=== PATIENT | female | born 1955 | race Caucasian/White ===

== ENCOUNTER 2018-09-01 17:56 | Inpatient (IN) | payer OTHER ==
[~2018-09-01] VITALS: Ht 162.6 cm; Wt 141.4 kg
--- NOTE | ~2018-09-01 | D ---
[facility] [place] [address] DISCHARGE SUMMARY Name: CHANTE MCCRACKEN Room #: 527B-B DIS IN M.R.#: [id number] Admission: 09/01/18 ������������������ Attend Phys: Kee Cosme DO Discharge: 09/06/18 ������������������ Date of : 59 Report #: [id number] THIS REPORT FOR: //name// CC: Kee Rahman Physician staff DATE OF SERVICE: 09/06/2018 PSYCHIATRIC DISCHARGE SUMMARY DIGITAL ANALYTICS MANAGER AT THE TIME OF DISCHARGE: Rasheed Cornejo MD DISCHARGE DIAGNOSES: As follows: Bipolar 1 disorder, most recent episode manic with psychotic features, improved, likely borderline personality disorder especially borderline personality traits. Medical comorbidities include back pain lower, the patient refused radiologic examination of this, hypothyroidism, bladder retention, hypertension. The hypothyroidism, bladder retention, hypertension were all stable. She had lower extremity swelling, likely lymphedema that was managed with Lasix. DISCHARGE PLANS: She is discharged back to the [facility]. The patient does not have a guardian or DPOA. Psychiatric and medical care will be per the facility's protocol, however, certainly psychiatric consultation is encouraged. DISCHARGE MEDICATIONS: Are as follows: Tamsulosin 0.4 mg p.o. at 2100 hours for urinary retention, lamotrigine 50 mg p.o. at bedtime for mood stabilizations, ziprasidone 60 mg p.o. b.i.d. with meals for psychosis, diazepam 5 mg p.o. q. 6 p.r.n. for agitation, potassium chloride 20 mEq p.o. b.i.d. supplementation, furosemide 20 mg p.o. b.i.d. at 0700 hours and 1400 hours for lymphedema, amlodipine besylate 10 mg p.o. daily for hypertension, Welchol 1875 mg p.o. b.i.d. for hyperlipidemia, ergocalciferol 50,000 international units p.o. weekly, famotidine 20 mg p.o. at bedtime for GERD, levothyroxine 100 mcg p.o. daily for hypothyroidism, miconazole topical t.i.d. to tinea on axilla and under breast until resolved, tramadol 50 mg p.o. q.4 p.r.n. for pain level 5-10. Stop medications included cyproheptadine which I think is poor idea because of the serotonin antagonist as well as its strong antihistaminic effect. The patient has super morbid obesity with a BMI of 53.5 REASON FOR ADMISSION: Refusal for cares, decompensated psychosis. HOSPITAL COURSE: The patient was admitted to Geriatric Psychiatry Unit. The patient displayed initially several days of very childish behavior, putting herself on the floor, refusing to get up and needed to be secured to [address] [address] DISCHARGE SUMMARY Name: CHANTE MCCRACKEN Room #: 527B-B DIS IN M.R.#: [id number] Admission: 09/01/18 ������������������ Attend Phys: Kee Cosme, DO Discharge: 09/06/18 ������������������ Date of : 59 Report #: [id number] board to be put back in bed. The patient was generally not participative in group. She displayed what I strongly believe are nonepileptic seizure phenomenon. The patient was uncooperative with further evaluation from these including radiologic examination. At the time of discharge, the patient was not suicidal or homicidal. PHYSICAL EXAMINATION: VITAL SIGNS: A the time of discharge, temperature 37.1, pulse 87, respirations 18, BP 153/81, O2 sat 93% on room air. MUSCULOSKELETAL: The patient is somewhat selectively nonambulatory claiming she is nonweightbearing due to fracture which is not true. MENTAL STATUS EXAMINATION: This is a well-developed, super morbidly obese female, appearing actually slightly younger than stated age. Attention intact. Concentration intact. Speech normal rate and normal tone. Thought process linear, selectively goal directed. Thought content focused on having a baby, she does have pseudocyesis at the time of discharge, she believed she was 6 weeks , beginning of admission when she was ____ she was a month , wanting to live with her parents. No psychomotor agitation. No psychomotor retardation. Mood and affect were congruent, euthymic. Denied SI or HI. Some helplessness. Denied hopelessness. Memory not formally tested. Insight poor. Judgment limited. Fund of knowledge below average. Prognosis for this patient is guarded to poor given her psychiatric history, refusal to cooperate with medical and psychiatric evaluations. I concur with the family that public development administrator/guardian would likely be in the best interest of managing this patient on an ongoing basis. ��������������������������������������������� ���������������������������������������� By: ��������������������������������������������� [id number] Kee Cosme, /nt
[2018-09-01 17:59] VITALS: BP 160/82
[2018-09-01] MEDS ORDERED: NORVASC10 MG PO (18:03)
[2018-09-01] MEDS ORDERED: COLESEVELAM HC625 MG PO (18:04)
[2018-09-01] MEDS ORDERED: CYPROHEPTADINE 44 MG PO (18:11)
[2018-09-01] MEDS ORDERED: DEXACIDIN EYE DR5 ML OPHTHALMIC (18:13)
[2018-09-01] MEDS ORDERED: VITAMIN D250 MCG PO (18:14)
[2018-09-01] MEDS ORDERED: FAMOTIDINE 20 M20 MG PO (18:15)
[2018-09-01] MEDS ORDERED: LASIX 20 MG TAB20 MG PO (18:16)
[2018-09-01] MEDS ORDERED: LAMICTAL100 MG PO (18:17)
[2018-09-01] MEDS ORDERED: TIROSINT100 MCG PO (18:18)
[2018-09-01] MEDS ORDERED: MICONAZOLE5 GM TOP (18:19)
[2018-09-01] MEDS ORDERED: KLOR-CON 1010 MEQ PO (18:20)
[2018-09-01] MEDS ORDERED: AKWA TEARS EYE15 ML OPHTHALMIC (18:20)
[2018-09-01] MEDS ORDERED: TOBREX5 ML OPHTHALMIC (18:21)
[2018-09-01] MEDS ORDERED: FLOMAX0.4 MG PO (18:21)
[2018-09-01] MEDS ORDERED: GEODON40 MG PO (18:22)
[2018-09-01] MEDS ORDERED: TRAMADOL 50 MG50 MG PO (18:24)
[2018-09-01] MEDS ORDERED: GEODON20 M1 IM (18:24)
[2018-09-01 18:48] LABS: BASOPHILS 0.6 % (0.0-2.0); EOSINOPHILS 1.9 % (0.0-3.0); HEMATOCRIT 47.3 % (37.0-47.0); HEMOGLOBIN 15.7 gm/dL (12.0-15.0); LYMPHOCYTES 28.3 % (24.0-44.0); MCH 28.9 pg (26.0-34.0); MCHC 33.3 g/dL (28.0-37.0); MCV 86.8 fL (80.0-100.0); MONOCYTES 10.4 % (1.0-8.0); PLATELET COUNT 247 thou/uL (150-400); POLYS 58.8 % (36.0-66.0); RBC 5.45 mil/uL (4.20-5.00); RDW 14.3 % (10.5-14.5); WBC 10.1 thou/uL (4.0-11.0)
[2018-09-01 18:56] LABS: CALCIUM 9.8 mg/dL (8.5-10.1); CREATININE 0.8 mg/dL (0.6-1.0)
[2018-09-01 19:02] LABS: POTASSIUM 2.9 mmol/L (3.5-5.1)
[2018-09-01 20:12] VITALS: BP 154/92
[2018-09-01] MEDS ORDERED: DEXAMETHASONE 0.5 M1 OPHTHALMIC (20:57)
--- NOTE | 2018-09-01 23:01 | NUR ---
EXTREME AGITATION NOTED. PT YELLING, SCREAMING OBSCENITIES AT STAFF, SHOUTING CUSSING, SPITTIN ON STAFF. YELLING OUT DELUSION THAT SHE IS WITH BALJIT TIANBORN'S BABY. ORDER FOR GEODON 20MG IM AND BENEDRYL 25 MG IM ACQUIRED FROM DR. ALICIA, GIVEN IN L HIP WITH X3 ASSIST. CONTINUED HOLLERING AND YELLING AT THE TIME OF THIS WRITING.
--- NOTE | 2018-09-02 01:29 | NUR ---
@ 23:45 QUIETED DOWN, AND LAY IN BED WITH EYES CLOSED, RESPIRATIONS EVEN AND UNLABORED. TURNED HEAD TO THE DOOR UPON STAFF ENTRY INTO ROOM. WILL CONTINUE TO MONITOR Q12 MINUTES.
--- NOTE | 2018-09-02 04:04 | NUR ---
@ 01:15 AWAKENED, AND WAS VERBALLY AGITATED. GIVEN INCONTINENT CARE FOR BLADDER, STRONG ODOR NOTED. PO VALIUM 5MG AND 650 TYLENOL GIVEN FOR AGITATION AND GENERAL PAIN. BY 01:55, NOTED TO BE CALM, EYES CLOSED, RESPIRATIONS EVEN AND UNLABORED. NOTED TO BE TREMBLING AND JERKING WHEN ROLLED AND GIVEN INCONTINENT CARE WITH WHAT APPEARS TO BE VOLUNTARY MOVEMENTS. WILL MONITOR CLOSELY FOR S/S OF SEIZURE ACTIVITY. WILL CONTINUE TO OBSERVE Q 12 MINTUES FOR PATIENT SAFETY.
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
[2018-09-02 08:19] VITALS: BP 153/94
--- NOTE | 2018-09-02 08:20 | NUR ---
Assess due to class III extreme obesity, BMI of 53.5. Admitted to [facility] with agitation, delusions, hypokalemia, and hypomag. K 2.9 and Mg 1.7-being replaced. Hx bipolar. No hx diabetes but has carb control, protein control diet for weight and portion control. 2200 ml fluid ordered does not need to be a restriction but minimum intake to meet fluid needs. Low nutrition risk.
--- NOTE | 2018-09-02 08:25 | EKG ---
[place] [address] [facility] [place] [address] ELECTROCARDIOGRAM REPORT Name: CHANTE MCCRACKEN Room #: 527B-B ADM IN M.R.#: [id number] ������������������ Admission: 09/01/18 ������������������ Attend Phys: Kee Cosme DO Discharge: ������������������ Date of : 59 Report #: [id number] ����������������������������������������������������������������� [id number] THIS REPORT FOR: //name// [facility] ED Test Date: 2018-09-01 Test Time: 19:15:54 Pat Name: CHANTE MCCRACKEN Department: Room: [facility] Gender: F Cloud Physicist: VANDANA : 1955 Requested By: Coy Harvey Order Number: [id number] MD: Nando Dejesus Measurements Intervals [place] Rate: 68 P: 36 IL: 158 QRS: 12 QRSD: 96 T: 52 QT: 418 QTc: 445 Interpretive Statements Sinus rhythm Poor R wave progression No previous ECG available for comparison Electronically Signed On 09-02-2018 8:25:41 CDT by Nando Dejesus [email or web address] ��������������������������������������������� <ELECTRONICALLY SIGNED> ���������������������������������������� By: Nando Dejesus MD, [facility] ��������������������������������������������� 09/02/18 0825 [id number] Nando Dejesus MD, FACC /EPI
[2018-09-02 14:20] VITALS: BP 125/50
--- NOTE | 2018-09-02 14:21 | NUR ---
Approximately at 1220 p.m. I heard Klaudia yelling. I walked toward her rooom, Dr. Cosme asked me the get an IM of Yocasta ready to give to her. We called for kwesi for standby assist. Approximately ate 1230 we went into Klaudia's room. She was lying supine on the floor. Security assisted in getting Klaudia to sit up. Klaudia john open her eyes and close them; she did not verbally respond to staff. Another nurse and I tried to get her to stand-up. Klaudia would not respond verbally or help staff assist her from lying to sitting and sitting to standing. Security got a back board from the ER. Daniel and Dr. Cosme placed Ree on hte back board and lifted her to her bed. Dr. Cosme examined Ree for any injuries. No injuries were noted. NO redness or brusing was noted. 1420 VS - B/P 125/50, P 72, R 12, T, 98.6 O2 97.
--- NOTE | 2018-09-02 15:03 | NUR ---
SW and Nurse Publications Inspector attempted to speak with pt concerning the patients rights. SW mention that there will be a 96 hours hold. SW requested that pt response to if she understand what a 96 hour hold. Pt did not respond, and begin rolling her eyes. The nurse shopping centre manager callled pt name, and pt did not respond. Pt eye was open before SW attempted to read the 96 hour hold. SW continue to explaine that pt will be on a 96 hour hold, and have rights to attest the hold, and seek vocational rehabilitation counselor. Pt refused to communicate. SW mention that if she choose to speak with SW afterwards, she will be able to come to my office at the front of the hallway. SW will follow-up with pt on Wednesday, September 05, 2018.
--- NOTE | 2018-09-02 15:04 | NUR ---
I was by the SW to be a witness as she was informing Klaudia of her rights on a 96 hour hold. We turned on the light so we could see. Klaudia asked for the light to be turned off. She put the blanket over her face. The SW began to read to Klaudia her rights on the hold. The SW asked Klaudia for acknowledgement and Klaudia nodded her head in an affirmative manner. As the SW continued to read patient rights to Klaudia, she became verbally unresponsive. I pulled the blanket off her face. Klaudia was rolling her eye to to the upper left conrners. The SW informed Klaudia that she was attempting to inform her of her rights, still no verbal response from the patient. We left the room and shut off the lights.
--- NOTE | 2018-09-02 15:11 | NUR ---
SW attempted to complete the psychosocial assessment. Pt refuse, and did not respond to the question that were asked. Pt pulled the cover over her head. SW will attempt on tomorrow September 03, 2018.
--- NOTE | 2018-09-02 15:11 | NUR ---
An EEG was ordered. Klaudia refused to cooperative and refused to have the EEG completed.
--- NOTE | 2018-09-02 15:15 | NUR ---
96 hour hold was completed and submitted to th [facility] court.
--- NOTE | 2018-09-02 16:44 | NUR ---
PATIENT REFUSED EEG WHEN TECH ARRIVED TO ADMINISTER - ALSO DR. HOUGH ORDERED LUMBAR AND SPINE X - RAY. PATIENT UNCOOPERATIVE - REFUSING ANY TYPE OF CARES OR TESTS - WHEN APPROACHED BY MEDICAL PERSONNEL. ADVISED OF PATIENT'S BEHAVIOR AND RESISTANCE TO CARES.
--- NOTE | 2018-09-02 17:01 | NUR ---
PATIENT WAS APPROACHED IN ROOM TO ADMINISTER IM OF GEODON JUST BEFORE 1PM. SHE HAD BEEN SCREAMING PROFANITIES AT STAFF AND DR. ALICIA AND RESISTIVE TO CARES AND MEDICATIONS. PHYSICAL THERAPY HAD JUST WORKED WITH TRANSFERRING HER TO WHEELCHAIR. WHEN WE ENTERED ROOM SHE WAS FOUND LYING ON THE FLOOR FACE DOWN BY DR. ALICIA AND STAFF. WHEN ASSISTED TO TURN OVER MADE STATEMENT TO STAFF "THIS IS WHAT PSYCHOSIS IS LIKE - ATTEMPTS AT GETTING RESPONSE TO ASSISTING WITH GETTING UP OR ANY PAIN WERE NOT ANSWERED. DUE TO HER INABILITY TO RESPOND AND WEIGHT ADDITIONAL STAFF HAD BEEN CALLED TO ASSIST WITH RESITUATING HER IN BED. IT TOOK SOME TIME TO ACHIEVE THIS. PATIENT VITALS TAKEN AND WERE WITHIN NORM. SHE OPENED EYES AND RESPONDED BUT UNABLE TO HELP WITH LIFTING. ONCE SITUATED IN BED SHE BECAME MORE ALERT - EEG ORDERED AND TECH ADVISED ON ARRIVAL PATIENT UNCOOPERATIVE AND HE WAS UNABLE TO COMPLETE TEST. DUE TO HER PSYCHOSIS SHE IS RESISTANT AND REFUSING ALL TESTS TO CHECK HER INJURIES. AFTER THIS EVENT PATIENT BECAME PLACID AND MUCH MORE CALMER. CURRENTLY IN BED AND HAD BEEN GIVING PROFANITY OF MIDDLE FINGER TO ANYONE WHO PASSES HER DOORWAY.
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
--- NOTE | 2018-09-03 06:01 | NUR ---
INCONTINENCE CARE AND BED BATH GIVEN. PRN TYLENOL 650 AND DIAZEPAM 5 MG GIVEN FOR PAIN AND ANXIETY NOTED BY VERBALLY ABUSING STAFF, HITTING AND GRABBING STAFF WITH VIOLENCE AND UNCOOPERATIVE PUSHING, YELLING OBSCENITIES AT STAFF. SLEPT 4.8 HOURS.
[2018-09-03 07:30] VITALS: BP 137/69
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
--- NOTE | 2018-09-03 10:15 | NUR ---
0715: Report rec from noc shift, care assumed. 0800: Pt awake laying supine in bed, oriented to name and place. Pt stated she was nauseated, small amt of saliva appearance noted in emesis basin. Educated pt about medications available for nausea. Upon entering room to give Zofran 4mg IM, pt became confrontational with staff, this radio news writer accomp by LINDSAY Peña. 0817: Zofran 4mg IM given in Lt upper buttocks, assisted by LINDSAY Peña and security officers x2. Pt kicking, screaming at staff using curse words. 0900: While attempting to give a.m. meds, pt stated "I don't want them." This radio news writer explained to pt the importance of medications and the alternative if she refuses medications. Pt took meds, one at a time with water, no further nausea noted.
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
[2018-09-03 19:43] VITALS: BP 98/58
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
[2018-09-04 08:00] VITALS: BP 136/78
--- NOTE | 2018-09-04 11:04 | NUR ---
HILDA spoke with pt's parents this AM. They reported that she was discharged to the [facility] about a month ago and then stayed with them in their duplex, but she stopped taking her meds and then would not get out of her rocking chair. They reported that they called an EMT and they took her to [facility], and then she bounced around to [facility] and then [facility], and finally at [facility]. After which she went to [facility] for rehab. All of the behaviors that she davis usually lifts when she is properly medicated, and she is friendly and completes her ADL's. She has a brother who lives jase retirement in [place] who has paranoid schozphrenia and has a court appointed guardian. Pt's parents are interested in pursuing this and feel that she would benefit from the support that they can no longer provide. Hilda called both parents and sister and provided them with her security code so they could call and speak with her.
--- NOTE | 2018-09-04 11:39 | NUR ---
Sw spoke with pt this AM, to check in and provide support. SW applied lotion to her feet after checking with GARAGE MECHANIC and pt request. Sw witnessed her getting her medication and reassured her that her father had not . She seemed relieved.
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
[2018-09-04 19:45] VITALS: BP 110/70
[2018-09-04 19:58] VITALS: BP 89/60
--- NOTE | 2018-09-05 06:16 | NUR ---
Care assumed of patient on 09/04/18 at 1900. Patient smiling, pleasant and cooperative. Patient sitting in w/c in day room at start of shift. Patient hyperverbal. Patient speaking on the phone to her boyfriend, per patient. Patient dramatic and expansive with speech. Patient took medications whole without difficulty. Patient slept 2.8 hours last night. Patient reported difficulty sleeping. Patient stated that she is a night owl because she was born at 2:33am. Patient then sitting on side of bed and stating she is too hot. Air changed for patient. Patient then visualized sitting on side of bed and applying copious amounts of lotion to hair and body for approximatly 45 minutes during the night. Patient denies pain or discomfort. Used bedpan for toileting needs. No episodes of incontinence this shift. Patient was able to stand/pivot transfer with staff assist x2. Patient continues to decline her eye drops ordered. Education provided. Patient reports that her tears are creating natural supplemental healing for her eyes and she does not need the drops.
[2018-09-05 07:45] VITALS: BP 117/69
[2018-09-05 08:10] VITALS: BP 117/69
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
--- NOTE | 2018-09-05 13:18 | NUR ---
PT WANTING TO HAVE TEMP CHECKED. SHE THINKS SHE IS HAVING A FEVER.
--- NOTE | 2018-09-05 13:28 | NUR ---
PT TEMP. 99.0. TRIED TO ADM TYLENOL. PT WANTED IT IN POP WITH ICE. PT IN GROUP AND THIS NURSE UNABLE TO GIVE POP AT THIS TIME. PT STATED HER TAKE MED.
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
--- NOTE | 2018-09-05 14:29 | NUR ---
PT ABLE TO LYE DOWN IN BED X1 ASSIST. PT ABLE TO BEAR WEIGHT TO FEET JUST NEEDED TO BE CLOSE TO BED TO TRANSFER.
--- NOTE | 2018-09-05 16:39 | NUR ---
PT REFUSING TO GET UP TO EAT DINNER. PT STATED EARLIER THAT SHE CAN'T EAT DUE TO MORNING SICKNESS. TRYING TO LET PT KNOW THAT SHE IS NOT , PT NOT WANTING TO HEAR ABOUT IT. PT ALSO REFUSED TO GET UP WITH PHYSICAL THERAPY.
[2018-09-05 19:56] VITALS: BP 139/78
--- NOTE | 2018-09-05 23:52 | NUR ---
PT C/O NAUSEA. PT RESTING IN BED WITH HOB UP. EMESIS BASIN WITH HER. NO EMESIS. OFFERED INJECTION FOR NAUSEA OR VALIUM. SHE STATES "NO, IT'S NOT THAT BAD. I JUST NEED A CUP OF ICE AND A COLA." [place] SODA AND CUP OF ICE GIVEN TO PATIENT. WILL CONTINUE TO MONITOR.
[2018-09-05 23:58] VITALS: BP 139/78
--- NOTE | 2018-09-06 00:16 | NUR ---
PATIENT SLEEPING AND SNORING LIGHTLY. NO C/O NAUSEA.
--- NOTE | 2018-09-06 03:03 | NUR ---
PATIENT WAKING UP MOANING AND WHEN I WENT TO SEE WHAT WAS WRONG SHE STATES,"MY KNEE IS BROKEN." SHE IS SLID ALL THE WAY DOWN TO BOTTOM OF BED. PATIENT REFUSED TO BE PULLED UP IN BED. I ASKED WHAT I COULD DO TO HELP HER FEEL BETTER AND SHE REQUESTED ICE CHIPS WITH LEMONLIME SODA. SHE TOOK A DRINK AND FELL BACK TO SLEEP. AN HOUR LATER SHE STATES SHE IS SOAKED. PT VOIDED IN BED. PT AND SHEETS CLEANED AND REPLACED WITH NEW ONES. THIRTY MINUTES LATER SHE WANTS BACK ON THE BEDPAN TO TRY AND HAVE A BM. WAS ON BEDPAN FOR FEW MINUTES WITHOUT RESULTS. PATIENT SITTING UP IN BED WORKING ON A DRAWING FOR ANOTHER PATIENT HERE. 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 PT COOPERATIVE FOR THE MOST PART. CONTINUING TO MONITOR.
[2018-09-06 08:54] VITALS: BP 153/81
[2018-09-06 09:39] VITALS: BP 153/81
[2018-09-06] MEDS ORDERED: FLOMAX0.4 MG PO (11:04)
[2018-09-06] MEDS ORDERED: LAMICTAL 25 MG25 MG PO (11:05)
[2018-09-06] MEDS ORDERED: ZIPRASIDONE HCL20 M1 PO (11:06)
[2018-09-06] MEDS ORDERED: VALIUM5 MG PO (11:06)
--- NOTE | 2018-09-06 11:06 | NUR ---
Patient Name: CHANTE MCCRACKEN Admission Date: 09/01/18 DISCHARGE PLAN: Pt will d/c to [facility]. Care Assessment: Pt was assessed by Dr. Cosme and diagnosed with Bipolar I Most Recent, Maniac w/ Psychotic Features Level II Assessment: None Transportation: Pt will be transported by [facility]. Special Instructions/Notes: Pt will need assistance with care, and wellbeing. DISCHARGE TO FACILITY: Facility: [facility] Fax: Address: [address] [place] [id number] Contact Name: Krystle PCP: CL primary doctor Psychiatrist: CL Psychiatrist
[2018-09-06] MEDS ORDERED: LASIX 20 MG TAB20 MG PO (11:07)
[2018-09-06] MEDS ORDERED: POTASSIUM20 PO (11:07)
--- NOTE | 2018-09-06 13:27 | NUR ---
ASSUMED CARE OF PATIENT AT 0715, REPORT RECEIVED FROM AUTOMOTIVE CUSTOMER EXPERIENCE ADVISOR NURSES. PATIENT ALERT AND ORIENTED WITH DELUSIONS. PATIENT UP WITH ASSIST, PATIENT ASSISTED HERSELF UP TO THE WHEELCHAIR. PATIENT DENIES PAIN THIS AM. PATIENT REFUSED SOME OF AM MEDS, CHARTED REFUSED AND WASTED THE MEDS SHE REFUSED TO TAKE. PATIENT HAS SOME REDNESS/BRUISING TO UPPER EXTREMITIES. HAS REDNESS TO FACIAL AREA. PATIENT INCONTINENT X 2, COMPLETE BED CHANGE X 2, PATIENT RECEIVED SPONGE BATH THIS AM AFTER INCONTINENT EPISODES. PATIENT DISCHARGING TO REHAB, ATTEMPTED TO GIVE REPORT X 2, LEFT VOICE MESSAGE. PATIENT LEFT WITH TRANSPORTATION SERVICE, NO PERSONAL BELONGINGS LEFT WITH THE PATIENT. ALL DISCHARGE PAPERWORK SENT WITH THE TRANSPORTER. ASSESSMENT DONE AND VITAL SIGNS STABLE. PATIENT C/O NAUSEA THIS AM, THIS RN ADMINISTERED ZOFRAN IM RIGHT BUTTOCK.
== END 2018-09-06 13:10 | DRG 885 ==
LOC: ER 17:56 → SBH 19:55 → EROBS 19:55 → SBH 20:26
PROVIDERS: Emergency Medicine; ADMIT Psychiatry & Neurology Psychiatry
DX: F31.2 Bipolar disorder, current episode manic severe with psychotic features (principal); R45.1 Restlessness and agitation; E03.9 Hypothyroidism, unspecified; I10 Essential (primary) hypertension; F17.210 Nicotine dependence, cigarettes, uncomplicated; E87.6 Hypokalemia; E83.42 Hypomagnesemia; M54.9 Dorsalgia, unspecified; R33.9 Retention of urine, unspecified; F60.3 Borderline personality disorder; Z79.899 Other long term (current) drug therapy; Z88.8 Allergy status to other drugs, medicaments and biological substances; Z88.2 Allergy status to sulfonamides
CPT/HCPCS: 10880

== ENCOUNTER 2019-10-17 17:05 | Inpatient (IN) | payer OTHER ==
[~2019-10-17] VITALS: Ht 170.2 cm; Wt 119.3 kg
[~2019-10-17 17:05] MED LIST: AKWA TEARS EYE15 ML OPHTHALMIC; COLESEVELAM HC625 MG PO; CYPROHEPTADINE 44 MG PO; DEXACIDIN EYE DR5 ML OPHTHALMIC; DEXAMETHASONE 0.5 M1 OPHTHALMIC; FAMOTIDINE 20 M20 MG PO; FLOMAX0.4 MG PO; GEODON20 M1 IM; GEODON40 MG PO; KLOR-CON 1010 MEQ PO; LAMICTAL 25 MG25 MG PO; LAMICTAL100 MG PO; LASIX 20 MG TAB20 MG PO; MICONAZOLE5 GM TOP; NORVASC10 MG PO; POTASSIUM20 PO; TIROSINT100 MCG PO; TOBREX5 ML OPHTHALMIC; TRAMADOL 50 MG50 MG PO; VALIUM5 MG PO; VITAMIN D250 MCG PO; ZIPRASIDONE HCL20 M1 PO
[2019-10-17 17:07] VITALS: BP 142/68
[2019-10-17 18:25] LABS: ABSOLUTE NEUTROPHILS 5.9 thou/uL (1.4-8.2); EOSINOPHILS 3.5 % (0.0-3.0); HEMATOCRIT 38.3 % (37.0-47.0); HEMOGLOBIN 12.7 gm/dL (12.0-15.0); LYMPHOCYTES 24.6 % (24.0-44.0); MCH 29.9 pg (26.0-34.0); MCHC 33.1 g/dL (28.0-37.0); MCV 90.4 fL (80.0-100.0); POLYS 60.9 % (36.0-66.0); RBC 4.23 mil/uL (4.20-5.00); RDW 15.6 % (10.5-14.5); WBC 11.3 thou/uL (4.0-11.0)
[2019-10-17 18:36] LABS: CREATININE 0.8 mg/dL (0.6-1.0); POTASSIUM 3.6 mmol/L (3.5-5.1)
[2019-10-17 18:41] LABS: SALICYLATE 3.7 mg/dL (2.8-20.0)
[2019-10-17 18:42] LABS: ALBUMIN 3.2 g/dL (3.4-5.0); TOTAL BILIRUBIN 0.3 mg/dL (0.2-1.0); TOTAL PROTEIN 6.6 g/dL (6.4-8.2)
[2019-10-17 19:01] LABS: PLATELET COUNT 155 thou/uL (150-400); PLATELET ESTIMATE NORMAL
[2019-10-18 00:05] VITALS: BP 119/36
--- NOTE | 2019-10-18 01:52 | NUR ---
PT ARRIVED TO THE UNIT AT AROUND 0040 HRS. SHE CAME IN A CART ACCOMPANIED BY SECURITY. PT WAS ABLE TO ROLL OVER TO REGULAR BED. PT IS VERY DROWSY. SHE WAS ABLE TO TELL ME HER NAME IS JAMAICA BUT THAT WAS ABOUT IT. I TRIED TO TAKE VITALS BUT WAS ONLY ABLE TO GET TEMP AND O2 SATS. PT DOES NOT WANT TO BE BOTHERED. WHEN I UNCOVERED HER TO INSPECT SKIN, SHE YELLED OUT PROFANITIES. AT THIS POINT, TRYING TO ASK HER QUESTIONS OR TURNING HER AROUND IN BED IS AGITATING HER.OTHER THAN CREATE A SCENARIO WHERE I WILL NEED SECURITY TO COME UP HERE, I WILL LET HER SLEEP. FALL PRECAUTION IN PLACE.NONE OF THE CONSENTS SIGNED.
--- NOTE | 2019-10-18 08:01 | EKG ---
[facility] [place] [address] ELECTROCARDIOGRAM REPORT Name: CHANTE MCCRACKEN Room #: 435-P ADM IN M.R.#: [id number] Admission: 10/17/19 Attend Phys: Carroll Devlin MD Discharge: Date of : 59 Report #: [id number] THIS REPORT FOR: cc: Bulmaro Rahman Kevin E. DO Lundgren,Nando Stanton MD [facility] ~ THIS REPORT FOR: //name// [facility] ED Test Date: 2019-10-17 Test Time: 17:52:10 Pat Name: CHANTE MCCRACKEN Department: Room: [facility] Gender: F Model Maker: bridgette cornejo rn : 1955 Requested By: Trinity Marsh Order Number: [id number] MD: Nando Dejesus Measurements Intervals [place] Rate: 59 P: 30 MN: 182 QRS: 1 QRSD: 104 T: 27 QT: 477 QTc: 473 Interpretive Statements Sinus bradycardia Poor R wave progression Compared to ECG 09/01/2018 19:15:54 No significant change was found Electronically Signed On 10-18-2019 8:00:45 CDT by Nando Dejesus [email or web address] <ELECTRONICALLY SIGNED> By: Nando Dejesus MD, [facility] 10/18/19 0800 51 51 Nando Dejesus MD, [facility] /EPI
[2019-10-18 08:30] VITALS: BP 172/93
--- NOTE | 2019-10-18 11:00 | NUR ---
ASSUMING CARE A&OX4 ASS, STATE OF CONFUSION, EDEMA LOWER EXTEMITIES, STAND BY, AWAITING CLEARANCE OF ADMITTING TO , FALL PRECAUTIONS IN PLACE, CALL LIGHT IN REACH. WILL CONTINUE TO MONITOR FOR SAFETY.
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
--- NOTE | 2019-10-18 15:06 | NUR ---
DURING TRANSFER TO [address] [place] [address], PT BECAME COMBATIVE, REFUSED TO LEAVE UNIT, ABUSIVE LANGUAGE TO STAFF, THROWING ITEMS. REFUSE TO SIGN DISCHARGE FORM. PT SAFELY ARRIVED TO [address] [place] [address].
== END 2019-10-18 14:58 | disposition short-term general hospital (02) | DRG 884 ==
LOC: ER 17:05 → EROBS 23:49 → 4S 23:49 → 4E 10-18 00:32 → 4S 10-18 00:49
PROVIDERS: Physician Assistant; ADMIT Internal Medicine; ATTEND Internal Medicine
DX: R45.1 Restlessness and agitation (principal); F22 Delusional disorders; F31.9 Bipolar disorder, unspecified; E11.9 Type 2 diabetes mellitus without complications; I10 Essential (primary) hypertension; E03.9 Hypothyroidism, unspecified; F03.90 Unspecified dementia, unspecified severity, without behavioral disturbance, psychotic disturbance, mood disturbance, and anxiety; F29 Unspecified psychosis not due to a substance or known physiological condition; Z20.828 Contact with and (suspected) exposure to other viral communicable diseases; Z88.2 Allergy status to sulfonamides; Z88.8 Allergy status to other drugs, medicaments and biological substances

== ENCOUNTER 2019-10-18 14:44 | Inpatient (IN) | payer OTHER ==
[~2019-10-18] VITALS: Ht 162.6 cm; Wt 119.7 kg
--- NOTE | 2019-10-18 16:08 | NUR ---
ANNETTE completed 96 hour hold docs for pt, got them notarized, and submitted them to the court. ANNETTE attempted to read pt her rights when she began yelling at SW and drying unit felting machine operator, and told ANNETTE to get out. Pt's 96 hour hold will end on 10/24/19 @1500. SW team will continue to follow pt during her stay on this unit.
--- NOTE | 2019-10-18 16:09 | NUR ---
Patient arrived 1445 loud, screaming, kicking, fighting. Unable to interview initially. Per Dr. Cosme given Geodon 20 mg. IM for agitation in right buttock.
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
[2019-10-18 16:54] LABS: URINE BILIRUBIN NEGATIVE (Negative); URINE BLOOD NEGATIVE (Negative); URINE CLARITY CLEAR; URINE COLOR YELLOW; URINE GLUCOSE-RANDOM* NEGATIVE (Negative); URINE KETONES NEGATIVE (Negative); URINE LEUKOCYTES NEGATIVE (Negative); URINE NITRITE NEGATIVE (Negative); URINE PROTEIN (DIPSTICK) NEGATIVE (Negative); URINE UROBILINOGEN 0.2 E.U./dl (0.2-1.0)
[2019-10-18 17:02] VITALS: BP 141/63
[2019-10-18 17:13] LABS: AMP/METHAMP Negative (Negative); BARBITURATES Negative (Negative); BENZODIAZEPINES Negative (Negative); COCAINE Negative (Negative); METHADONE Negative (Negative); OPIATES Negative (Negative); PCP Negative (Negative)
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
[2019-10-19 07:27] VITALS: BP 170/79
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
[2019-10-19 08:40] VITALS: BP 170/79
--- NOTE | 2019-10-19 09:15 | NUR ---
PT STARTED YELLING OUT IN DINING ROOM THAT SHE NEEDED HER GLASSES AND WAS CURSING AND THREATING STAFF TO GET HER GLASSES. TOLD PT THAT SHE NEEDED TO GO TO HER ROOM IF THREATING, PT STATED WHEN I GET MY GLASSES SHE WILL GO. PT ESCORTED BY STAFF TO HER ROOM AND SECURITY WAS CALLED. PT WALKED VIA WALKER AND LYING IN BED.
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
--- NOTE | 2019-10-19 10:50 | NUR ---
PT NOT YELLING NOW. PT RESTING WITH EYES CLOSED.
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
--- NOTE | 2019-10-19 11:56 | NUR ---
ADM TYLENOL 325MG 2 TABS PO FOR PAIN ALL OVER OF 10 ON 1-10 SCALE. PT STATES [address] ALICIA SAID SHE NEEDS TO TAKE GEODON AND SHE STATED SHE IS ALLERGIC TO IT AND SHE WILL GET A MIGRAINE AND LAST YEAR SHE TOOK THAT THAT AND HAD A MIGRAINE, HAD A SEIZURE, HIT HER HEAD AND STOPPED BREATHING.
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
--- NOTE | 2019-10-19 12:48 | NUR ---
ADM IBUPROPHEN 600MG FOR GENERALIZED PAIN.
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
--- NOTE | 2019-10-19 14:30 | NUR ---
Patient educated and encouraged to wear a yellow shirt due to fall risk. Patient remains delusional and refuses to wear a yellow t-shirt. All other fall interventions in place.
--- NOTE | 2019-10-19 17:26 | NUR ---
GIVING PT GEODON MEDICATION. PT GAVE MED CUP BACK AND STATED SHE WAS ALLERGIC TO IT. STATED SHE DID HAVE THIS MED WHEN SHE WAS HER LAST TIME. PT STATED HOW MUCH MG IN EACH TAB. THIS BET TAKER STATED 20MG EACH TAB. PT DID TAKE ONE TAB AT THIS TIME. PT DID TAKE GEODON 20MG PO. PT ATE 100% OF DINNER.
--- NOTE | 2019-10-19 17:39 | NUR ---
SPOKE TO DR. ALICIA ABOUT PT ONLY TAKING ONE TAB OF GEODON. AWARE OF HER OK WITH ONE TAB AT THIS TIME, WILL EVALUATE TOMMORROW.
[2019-10-19 19:23] VITALS: BP 188/87
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
[2019-10-20 07:30] VITALS: BP 165/104
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
[2019-10-20 12:54] VITALS: BP 165/104
[2019-10-20 19:58] VITALS: BP 175/82
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
[2019-10-21 07:49] VITALS: BP 161/71
[2019-10-21 09:42] VITALS: BP 161/71
--- NOTE | 2019-10-21 11:51 | NUR ---
1140 RESUMMED CARE FROM OVERNIGHT SHIFT THIS AM, PATIENT IN DAYROOM TALKING WITH ANOTHER PATIENT. PATIENT CALM COOPERATIVE DENIES SI/HI/AH/VH AT PRESENT. PATIENTS ABDOMEN SOFT ROUND BOWEL SOUNDS PRESENT LUNGS CLEAR PATIENT HAD BM THIS AM. PATIENT WAS CONCERNED THAT SHE WAS TAKING GEODON AND FELT THE DOCTORS ARE NOT LISTENING TO HER. PATIENT HAS NOT DISPLAYED ANY BEHAVIORS PATIENT ORIENTED TIMES 4. WILL CONTINUE TO MONITOR PATIENT FOR BEHAVIORS AND SAFETY.
[2019-10-21 18:24] VITALS: BP 189/100
[2019-10-21 19:40] VITALS: BP 182/83
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
[2019-10-22 07:41] VITALS: BP 156/88
[2019-10-22 09:42] VITALS: BP 156/88
--- NOTE | 2019-10-22 10:49 | NUR ---
1015 RESUMMED CARE FROM OVERNIGHT SHIFT THIS AM, PATIENT SITTING IN DAY ROOM TALKING TO STAFF. PATIENT ATE BREAKFAST TOOK MEDICATION WITHOUT INCIDENCE. PATIENT DENIES SI/HI/AH/VH AT PRESENT, PATIENT GOT UPSET WHEN SHE ASKED TO USE THE PHONE. PATIENT WOULD NOT LET ME EXPLAIN WHY SHE COULD NOT USE THE PHONE. PATIENT STARTED YELLING THAT SHE IS CALLING THE FBI ON US, PATIENTS THOUGHTS ARE FLIGHTY. SHE MAKES UP STORIES ABOUT TALKING TO THE FBI AND OTHER STORIES OF NEIGHBOR MOLESTING CHILDREN. PATIENT IS ORIENTED TIMES 4 WHEN YOU CONVERSATE WITH HER SHE TALKS LIKE SHE HAS HER FACTS ARE CORRECT. PATIENTS ABDOMEN SOFT ROUND BOWEL SOUNDS PRESENT LUNGS CLEAR. PATIENT HAS BRUISE ON RT UPPER ARM. WILL CONTINUE TO MONITOR PATIENT FOR BEHAVIORS AND SAFETY.
[2019-10-22 19:27] VITALS: BP 147/67
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
[2019-10-23 07:21] VITALS: BP 146/66
[2019-10-23 12:20] VITALS: BP 146/66
--- NOTE | 2019-10-23 12:41 | NUR ---
Pt is in day room with peers. Pt has long flight of ideas and disjointed conversations with who ever will lj that is around her. Pt denies bm at this time to day, but has voided. Pt lungs clearx2, pedal pulse equalx2, bowel sound active. Ree has a good appite at this time. Ree also has participated in group activities. Staff continues to observe to for safety.
[2019-10-23 19:53] VITALS: BP 144/74
--- NOTE | 2019-10-23 21:57 | NUR ---
Care of patient assumed at 1915. Patient is sitting in wheel chair in her room waiting for the sun to set. Cooperative with assessment. Reports LBM today 10/23/19. Says she is excited to go home toorrow. HS, LS, BS normal. A/O x 4. Rates neck/head pain 6/10. Compliant with HS meds and receives Ibuprofen 600mg. Rates pain 4/10 40 minutes later as she sits in the day room watching TV with peers.
[2019-10-24 07:31] VITALS: BP 121/80
[2019-10-24] MEDS ORDERED: CATAPRES0.1 MG PO (09:37)
[2019-10-24] MEDS ORDERED: NORVASC10 MG PO (09:38)
[2019-10-24] MEDS ORDERED: ZIPRASIDONE HCL20 M1 PO (09:39)
[2019-10-24] MEDS ORDERED: POTASSIUM20 PO (09:39)
[2019-10-24] MEDS ORDERED: LASIX 20 MG TAB20 MG PO (09:39)
[2019-10-24] MEDS ORDERED: FAMOTIDINE 20 M20 MG PO (09:40)
[2019-10-24] MEDS ORDERED: TIROSINT100 MCG PO (09:40)
[2019-10-24] MEDS ORDERED: PT HOME MEDICATION MISCELL (09:42)
[2019-10-24] MEDS ORDERED: VITAMIN D325 MC1 PO (09:42)
--- NOTE | 2019-10-24 10:15 | NUR ---
ANNETTE talked with pt who confirmed she would like to d/c today at 3pm. ANNETTE asked to where. At first she said to a hotel in [place]; she said she is involved with a deputy sheriff bailiff in [facility] and wants to be near him. She choose the [facility] in [place] because they have a gym and a pool. She then realized she needs her social sec. monies so she asked ANNETTE to send her instead to [facility] at [address] [place] [address]. She will then take a taxi to her next destination. SW team will continue to follow pt during her stay on this unit.
[2019-10-24 10:54] VITALS: BP 121/80
--- NOTE | 2019-10-24 11:47 | NUR ---
1125 RESUMMMED CARE FROM OVERNIGHT SHIFT THIS AM, PATIENT IN ROOM DOING HYGIENE. PATIENT ATE BREAKFAST TOOK MEDICATION WITHOUT INCIDENCE; PATIENTS ABDOMEN SOFT ROUND BOWEL SOUNDS PRESENT. PATIENTS LUNGS CLEAR PATIENT DENIES SI/HI/AH/VH AT PRESENT. PATIENT IS DISCHARGING TODAY TO A HOTEL AND WAS ON THE PHONE MAKING HOTEL RESERVATIONS THIS AM. PATIENT HAS NOT DISPLAYED ANY BEHAVIOR PROBLEMS THIS SHIFT. WILL CONTINUE TO MONITOR PATIENT FOR SAFETY AND BEHAVIORS.
[2019-10-24 12:12] VITALS: BP 121/80
--- NOTE | 2019-10-24 12:28 | NUR ---
SW D/C NOTE SW faxed pt's discharge docs to [facility]. No other needs for SW team to address at this time.
== END 2019-10-24 15:20 | disposition home or self-care (01) | DRG 885 ==
LOC: SBH
PROVIDERS: ADMIT Psychiatry & Neurology Psychiatry; ATTEND Psychiatry & Neurology Psychiatry
DX: F31.2 Bipolar disorder, current episode manic severe with psychotic features (principal); Z68.42 Body mass index [BMI] 45.0-49.9, adult; E11.9 Type 2 diabetes mellitus without complications; I10 Essential (primary) hypertension; E03.9 Hypothyroidism, unspecified; E78.5 Hyperlipidemia, unspecified; E66.9 Obesity, unspecified; F43.10 Post-traumatic stress disorder, unspecified; Z79.899 Other long term (current) drug therapy; Z79.2 Long term (current) use of antibiotics; Z88.8 Allergy status to other drugs, medicaments and biological substances
CPT/HCPCS: 10880

== ENCOUNTER 2020-01-15 12:51 | Inpatient (IN) | payer OTHER ==
[~2020-01-15] VITALS: Ht 170.2 cm; Wt 110.2 kg
[2020-01-15 12:51] VITALS: BP 130/61
[~2020-01-15 12:51] MED LIST changes: +CATAPRES0.1 MG PO; +PT HOME MEDICATION MISCELL; +VITAMIN D325 MC1 PO
--- NOTE | 2020-01-15 15:10 | NUR ---
PROVIDER INSTRUCTED LINE OF SIGHT FOR OBSERVATION AND CAN DC 1:1.
[2020-01-15 18:57] VITALS: BP 152/58
[2020-01-15 22:33] VITALS: BP 152/44
[2020-01-15 23:03] VITALS: BP 187/86
[2020-01-15 23:48] LABS: HEMATOCRIT 36.4 % (37.0-47.0); HEMOGLOBIN 11.8 gm/dL (12.0-15.0); MCH 29.5 pg (26.0-34.0); MCHC 32.5 g/dL (28.0-37.0); MCV 90.9 fL (80.0-100.0); RDW 14.3 % (10.5-14.5); WBC 5.6 thou/uL (4.0-11.0)
[2020-01-16 00:20] LABS: CALCIUM 8.9 mg/dL (8.5-10.1); CREATININE 0.6 mg/dL (0.6-1.0); POTASSIUM 3.2 mmol/L (3.5-5.1)
[2020-01-16 00:21] LABS: MAGNESIUM 1.7 mg/dL (1.8-2.4)
[2020-01-16 04:21] VITALS: BP 186/74
[2020-01-16 05:20] LABS: URINE BILIRUBIN NEGATIVE (Negative); URINE BLOOD NEGATIVE (Negative); URINE CLARITY CLEAR; URINE COLOR YELLOW; URINE GLUCOSE-RANDOM* NEGATIVE (Negative); URINE KETONES 1+ (Negative); URINE LEUKOCYTES-REFLEX NEGATIVE (Negative); URINE NITRITE-REFLEX NEGATIVE (Negative); URINE PROTEIN (DIPSTICK) NEGATIVE (Negative); URINE UROBILINOGEN 0.2 E.U./dl (0.2-1.0)
[2020-01-16 07:25] VITALS: BP 156/78
--- NOTE | 2020-01-16 09:00 | NUR ---
PT ADMITTED FROM ER ON 01/15/20 FROM [facility]. COVID+. MENTAL HEALTH ISSUES. ADMITTED TO 3 WEST INSTEAD OF 5TH FLOOR DUE TO COVID STATUS. SHE ARRIVED WITH NO SHIRT ON AND WET ORTIZ SHORTS AND NO OTHER BELONGINGS. SHE IS CONFUSED, DELUSIONAL AT TIMES, HOSTILE AT TIMES, AND UNCOOPERATIVE AT TIMES. SHE SMELLS OF URINE. UA SENT TO LAB. CARPENTRY SPECIALIST CAME TO SEE PT AND ORDERED SOME MEDS ETC. IV STARTED LEFT HAND.2GM MG GIVEN IV. INSTRUCTED PT ON FALL PRECAUTIONS. CALL LIGHT IN REACH, BED ALARMON. SHE HAS BEEN INCONTINENT SEVERAL TIMES OF URINE. PT STATES SHE IS HOMELESS AND HAS NO OTHER CONTACTS AT THIS TIME. SHE STATED MOST OF HER FAMILY HAS BEEN MURDERED.
[2020-01-16 15:49] VITALS: BP 136/64
--- NOTE | 2020-01-16 16:36 | NUR ---
INITIAL ASSESSMENT: Consult received. ANNETTE reviewed chart and spoke [facility] nursing and attending physician. Pt was admitted to due to testing positive for COVID-19. Pt was transferred from [facility] to [facility] for admission to [facility]. Pt had COVID test in the ER and was positive. Pt is febrile and not requiring O2. ANNETTE discussed case with Dr. Cosme. Pt was on [facility] unit in October and was discharged to a mot in [place] with outpatient follow up at [facility]. Pt has an open case with [facility]. ANNETTE placed call to [facility] and left voice message for Zain Holguin, assigned family caseworker. Awaiting call back form Zain at this time to discuss [facility]' involvement. ANNETTE is following to assist as needed with discharge planning.
--- NOTE | 2020-01-16 18:00 | NUR ---
PT WITH FLIGHT OF IDEAS...APPEARS VERY AGITATED AT TIMES...REFUSED ZYPREXA @ 1500 AND ORDER OBTAINED TO GIVE IM DOSE WITH SECURITY ASSISTANCE... PT PULLS PUREWIK APART AND SHE THREW HER BREAKFAST ON FLOOR AND HER ADMISSION FOLDER..
[2020-01-16 20:04] VITALS: BP 145/77
[2020-01-17 00:06] LABS: GLYCOHEMOGLOBIN (HGB A1C) 5.2 % (4.8-5.6)
--- NOTE | 2020-01-17 04:59 | NUR ---
Pt. rested quietly at short intervals during the night when checked on during frequent rounds. She did refuse her po zyprexa and it had to be given im. Pt. was not very happy about this, but was given without too much difficulty. She is anxiouis at times with some angry mood swings present. Up to the bed- side comode with one assist. Po tylenol given for a headache (see emar) with some relief noted. Bed alarm is on.
[2020-01-17 06:16] VITALS: BP 169/78
[2020-01-17 09:00] VITALS: BP 165/72
--- NOTE | 2020-01-17 15:09 | NUR ---
SW received call back from Zain Holguin with [employer] ( ). Pt has two open cases with [employer]. Pt has had two hospitalizations on [facility] this year. Pt was discharged to [facility] following her stay on [facility] in August, and then discharged to a hotel in [place] after stay in October. Pt is connected with [facility]. Pt's transplant case manager is Ayana Torres ( ). Pt has had 7 ER visits to [facility] annd 4 ER visits to [facility] in December. Pt was brought in by the police to the ER. Pt was transferred to [facility] for behavioral health eval from [facility]. Pt was then transferred to [facility] for admission to [facility] unit. Pt is estranged from her family (parents, siblings and children). Pt's 13 yr old dtr in June of 1990. Pt's spouse shortly after their dtr's . [facility] has been working on assisting with guardianship, but have unable to obtain Interrogatories from physicians to support their case. ANNETTE discussed with [facility] psychiatrist, who has been in contact with Anitra at [facility], who will provide documentation to help support guardianship case. ANNETTE discussed with Director of Case Mgmt. Pt will remain on 3W until out of isolation and then will transfer to [facility]. ANNETTE is following to assist as needed with discharge planning.
--- NOTE | 2020-01-17 16:40 | NUR ---
PT CARE ASSUMED AT 0700, PT ALERT AND ORIENTED X4, AGAITATED AND ANGRY AT TIMES. PT HAD EPIODES OF FLIGHT OF IDEAS, HAD TO REORIENT PT MULTIPLES TIMES AND CALM HER DOWN. REFUSED HER PO ZYPREXA MULTIPLE TIMES BUT FINALLY TOOK THEM. TOOK A SHOWER INT HE AFTERNOON. SEEMS TO BE MUCH CALMER AND SLEEPY AROUND 1600. FALL PRECAUTIONS IN PLACE. CONTINUE TO EDUCATE PT ABOUT USING CALL LIGHT BEFORE GETTING OUT OF BED.
[2020-01-17 16:47] VITALS: BP 172/92
[2020-01-17 19:17] VITALS: BP 167/78
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
--- NOTE | 2020-01-18 03:59 | NUR ---
Patient working towards outcome goals. Oxygenation optimal on roomair. COVID positive, asymptomatic. Alert and oriented but very paranoid and with flights of thoughts. Took meds after coaxing. Gait steady up to BSC. Calls out appropriately for needs.
[2020-01-18 04:50] VITALS: BP 179/85
[2020-01-18 07:44] VITALS: BP 184/85
[2020-01-18 15:18] VITALS: BP 119/66
[2020-01-18 19:03] VITALS: BP 156/66
--- NOTE | 2020-01-18 19:07 | NUR ---
RN ASSUMED PT'S CARE AT 0700AM, PT IS A&OX3, PT'S VS ARE STABLE, PT IS CONTINUING ISOLATION FOR POSITIVE COVID, PT IS COOPERATVE TO TAKE ALL PO MEDICATIONS, PT DENIES PAIN AND SOB .
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
--- NOTE | 2020-01-18 20:21 | NUR ---
PT REFUSED SLIDING SCALE COVERAGE. PT COMPLIANT WITH MEDICATIONS WITH ENCOURAGEMENT. PT PROVIDED HS SNACK.
[2020-01-19 04:43] VITALS: BP 187/106
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
[2020-01-19 06:18] LABS: HEMATOCRIT 38.5 % (37.0-47.0); HEMOGLOBIN 12.3 gm/dL (12.0-15.0); MCH 29.1 pg (26.0-34.0); RBC 4.23 mil/uL (4.20-5.00); RDW 14.8 % (10.5-14.5); WBC 7.2 thou/uL (4.0-11.0)
[2020-01-19 06:25] LABS: CALCIUM 10.2 mg/dL (8.5-10.1); CREATININE 0.6 mg/dL (0.6-1.0); POTASSIUM 4.2 mmol/L (3.5-5.1)
[2020-01-19 09:45] VITALS: BP 162/74
--- NOTE | 2020-01-19 15:27 | NUR ---
ANNETTE reviewed chart and spoke with nursing. Sandy is following pt while on 3W. Pt is in Enhanced Isolation due to COVID-19. ANNETTE left voice message for Anitra at [facility]. ANNETTE spoke with Ayana pt's mental health case manager at [facility]. [facility] in [facility] has pt's open cases. Guardianship has been discussed. ANNETTE spoke with Zain at [facility] to follow up. Zain will discuss case with his casino supervisor. No weekend discharge planned. ANNETTE is following to assist as needed with discharge planning.
--- NOTE | 2020-01-19 18:43 | NUR ---
PATIENT NOW SLEEPING. SHE HAS STAYED IN HER ROOM THROUGH THE DAY AND HAS BEEN COOPERATIVE WITH CARE. WILL CONT WITH PLAN OF CARE.
[2020-01-19 19:09] VITALS: BP 138/65
--- NOTE | 2020-01-20 06:45 | NUR ---
Pt. slept fair during the night after she was given snacks. C/O not getting what she wanted for dinner. Able to answer orientation questions though she stated she's about 4 months . Refused BG check at HS. She also refused IV start and CT chest that the doctor ordered STAT. When asked again this am she stated she'll think about it later. Informed her that doctor ordered bladder scan before and after she voids but she also refused. She at least took her meds and allowed me to give her heparin SQ. Tolerating room air well with no respiratory distress. Cont. on isolation ,afebrile.Up ad maya in room with steady gait.
[2020-01-20 07:32] VITALS: BP 140/82
[2020-01-20 15:16] VITALS: BP 140/70
--- NOTE | 2020-01-20 19:29 | NUR ---
PATIENT NOTED TRASHING HER ROOM . THROWING FOOD TO THE FLOOR, FLOODING THE FLOOR WITH TAP WATER. SCATTERING HER BEDDINGS, THROWING THE PILLOW CASE TO THE FLOOR AND ALL THE CONTENTS OF HER DINNER TRAY AND SOME CONTENTS OF HER LUNCH TRAY.STATES DIETARY DID NOT SEND HER THE CORRECT AMOUNT OF FOOD. WILL CONT WITH PLAN CARE.
[2020-01-20 19:54] VITALS: BP 160/112
[2020-01-20 21:03] VITALS: BP 126/46
[2020-01-21 05:13] VITALS: BP 129/58
--- NOTE | 2020-01-21 06:22 | NUR ---
Started shift with pt. very upset not getting food that she ordered. Provided snacks after blood glucose checked. She slept fair in the recliner chair. Cooperative though with episodes of being so anxious and some agitation. She took her HS meds the started to calm down. Tylenol given for shoulder pain with some relief. Reported she finally had a good bm during the day that the toilet got clogged. Cont. on enhanced precaution ,afebrile. Making some progress towards care plan goals.
[2020-01-21 07:31] VITALS: BP 113/82
[2020-01-21 09:01] LABS: ABSOLUTE NEUTROPHILS 5.8 thou/uL (1.4-8.2); BASOPHILS 0.4 % (0.0-2.0); EOSINOPHILS 0.2 % (0.0-3.0); HEMATOCRIT 40.8 % (37.0-47.0); HEMOGLOBIN 13.2 gm/dL (12.0-15.0); MCH 29.3 pg (26.0-34.0); MCHC 32.4 g/dL (28.0-37.0); MCV 90.5 fL (80.0-100.0); MONOCYTES 8.3 % (1.0-8.0); PLATELET COUNT 211 thou/uL (150-400); POLYS 77.1 % (36.0-66.0); RBC 4.51 mil/uL (4.20-5.00); RDW 14.5 % (10.5-14.5); WBC 7.5 thou/uL (4.0-11.0)
[2020-01-21 09:15] LABS: ALBUMIN 3.5 g/dL (3.4-5.0); ANION GAP 10 mmol/L (7-16); BUN 25 mg/dL (7-18); CALCIUM 9.6 mg/dL (8.5-10.1); CHLORIDE 104 mmol/L (98-107); CO2 26 mmol/L (21-32); CREATININE 0.6 mg/dL (0.6-1.0); GLUCOSE 107 mg/dL (74-106); MAGNESIUM 2.2 mg/dL (1.8-2.4); POTASSIUM 4.3 mmol/L (3.5-5.1); SGOT 10 U/L (15-37); SGPT 19 U/L (30-65); SODIUM 140 mmol/L (136-145); TOTAL BILIRUBIN < 0.1 mg/dL (0.2-1.0); TOTAL PROTEIN 7.1 g/dL (6.4-8.2)
--- NOTE | 2020-01-22 07:58 | NUR ---
PROGRESS PT VERY MANIAC WAS AGITATED AT START OF SHIFT BUT CALMED DOWN AFTER AWHILE. PT UP ALL NIGHT DRAWING AND TALKING COOPERATIVE AND PLEASANT BUT VERY DELUSIONAL. REFUSED SOME CARES AND SOME MEDS.
--- NOTE | 2020-01-22 10:59 | NUR ---
Assess due to length of stay. Admit COVID+, and mental health issues, followed by psychiatry schizoaffective disorder, personality disorder. Unable to speak with pt. Hx homelessness. Was pt on [facility] in 10/2019 - has lost favorable 30 lb and appetite is currently very good. On carb control diet for steroid induced hyperglycemia. A1C wnl 5.2. Corrected BMI calculation as pt is not 5'10", however has other ht measurements of 63" vs 67". Low nutrition risk
--- NOTE | 2020-01-22 15:21 | NUR ---
ANNETTE reviewed chart and spoke with nursing and attending physician. Pt remains in Enhanced Isolation due to COVID-19. Pt is afebrile and not requiring O2. Per nursing notes, pt continues to be agitated and delusional. ANNETTE left voice message for Zain at [facility] to discuss the possibility of [employer] filing for guardianship in [facility]. Awaiting call back at this time. ANNETTE is following to assist as needed with discharge planning.
[2020-01-22 16:27] VITALS: BP 128/61
[2020-01-22 20:07] VITALS: BP 150/90
[2020-01-23 04:19] VITALS: BP 157/87
--- NOTE | 2020-01-23 07:02 | NUR ---
NO BEHAVIORS OVERNIGHT. VITALS STABLE. DENIES PAIN, NAUSEA OR VOMITING. VITALS STABLE. NO OTHER CONCERNS. WILL CONTINUE TO MONITOR
[2020-01-23 07:59] VITALS: BP 129/62
[2020-01-23 15:47] VITALS: BP 149/76
--- NOTE | 2020-01-23 16:11 | NUR ---
ANNETTE reviewed chart and spoke with nursing and attending physician. Pt remains in Enhanced Isolation due to COVID-19. Pt is afebrile and not requiring O2. ANNETTE discussed case with psychiatrist. Pt does not meet admission criteria to [facility] and will not be admitted to the unit when out of isolation. ANNETTE spoke with [facility] ed case manager, Zain, briefly regarding case. Zain to call ANNETTE back at a later time. ANNETTE to discuss [facility] filing for guardianship on pt's behalf. ANNETTE is following to assist as needed with discharge planning.
--- NOTE | 2020-01-23 17:22 | NUR ---
NO CHANGED ON THIS SHIFT. SLOWLY TOWARDS POC GOALS.
[2020-01-23 19:52] VITALS: BP 131/63
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
[2020-01-24 07:28] VITALS: BP 147/96
--- NOTE | 2020-01-24 16:17 | NUR ---
ANNETTE reviewed chart and spoke with attending physician and [facility] psychiatrist. Pt remains in Enhanced Isolation due to COVID-19. Pt is afebrile and not requiring O2. ANNETTE spoke with Zain at [facility] regarding guardianship case through [facility]. Zain states he will discuss with his proof machine operator supervisor. Awaiting input from [facility] at this time. ANNETTE is following to assist as needed with discharge planning.
--- NOTE | 2020-01-24 17:53 | NUR ---
NO CHANGE. PATIENT MORE CULM TODAY. PROGRESSING TOWARDS POC GOALS.
[2020-01-24 19:04] VITALS: BP 135/61
--- NOTE | 2020-01-25 06:24 | NUR ---
PT MAKING SLOW PROGRESS TOWARDS GOALS. PT REFUSING LOVENOX AND REFUSED PO STEROID. SHE WOULD NOT ACCEPT ANY INFORMATION WHEN IT CAME TO THESE MEDICATIONS. "I KNOW THESE MEDICATIONS ARE MAKING ME FEEL WORSE, I DON'T WANT THEM, I'M NOT TAKING THEM." WILL ASK DAY RN TO PASS THIS ON TO PHYSICIAN. LABILE MOOD PT CAN BE ANGRY WITH STAFF FOR NOT BRINGING THREE SUGAR SUB PACKETS BUT THEN BE FRIENDLY AND TALK TO STAFF IN CASUAL CONVERSATION.
--- NOTE | 2020-01-25 15:36 | NUR ---
ANNETTE reviewed chart and spoke with nursing and attending physician. Also discussed case with psychiatrists (Dr. Cosme and Dr. Sanchez). Pt remains in Enhanced Isolation due to COVID-19. Pt is afebrile and not requiring O2. ANNETTE received Interrogatories from [facility] this morning for physician to complete. ANNETTE discussed with Dr. Cosme who will complete forms. [facility] contact info provided to Dr. Cosme. ANNETTE updated Anitra and case workers at [facility]. ANNETTE is following to assist as needed with discharge planning.
[2020-01-25 15:49] VITALS: BP 134/72
[2020-01-25 21:30] VITALS: BP 159/83
[2020-01-26 04:08] VITALS: BP 150/95
[2020-01-26 04:28] VITALS: BP 158/95
[2020-01-26 07:18] VITALS: BP 149/66
[2020-01-26 16:05] VITALS: BP 114/48
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
[2020-01-26 19:32] VITALS: BP 126/66
--- NOTE | 2020-01-27 03:36 | NUR ---
ASSESSMENTS CHARTED, MEDS CHARTED GIVEN. PATIENT RESTING IN BED DURING SHIFT. UP AT BIJAL IN ROOM. CONFUSED, UNRELATED THOUGHT FRAGMENTS SPEECH. ON ROOM AIR. PATIENT WILLING TO TAKE MEDICATIONS ONCE EACH ONE WAS IDENTIFIED AND ITS PURPOSE GIVEN. PATIENT TOOK NICOTINE PATCH OFF DUE TO MAKING HER ITCH. VSS. FALL PRECAUTIONS IN PLACE DURING SHIFT.
[2020-01-27 05:12] VITALS: BP 149/48
[2020-01-27 08:42] VITALS: BP 141/72
[2020-01-27 15:57] VITALS: BP 134/64
[2020-01-27 18:15] VITALS: BP 143/85
--- NOTE | 2020-01-27 18:40 | NUR ---
RN ASSUMED PT'S CARE AT 0700AM, PT IS A&OX3, BUT PT IS AGITAION AT TIME FOR ABNORMAL BEHAVIOR, PT'S VS ARE STABLE, PT DOES NOT HAVE FEVER AND SOB, PT IS OFF ISOLATION PER ID ORDER, PT TRANSFERED TO [facility] ROOM 461 ABOUT 1730PM.
--- NOTE | 2020-01-27 18:48 | NUR ---
PT. ARRIVED AT 1814 THIS EVENING. SHE WAS ESCORTED TO HER ROOM AND ALLOWED TO GET INTO BED. SHE IS COOPERATIVE WITH THIS RN. SHE IS STATING SHE IS ENGAGED TO A [facility]. SHE STARTED SAYING SHE IS LEAVING THE HOSPITAL ON WEDNESDAY, SHE IS NOT BEING TRANSFERRED TO . SHE IS STABLE AT THIS TIME.
--- NOTE | 2020-01-28 06:35 | NUR ---
Pt. has been up quite a bit during the night when checked on during frequent rounds. She verbalizes alot of flight of ideas. Up ad maya with her walker. Cooperative this shift.
[2020-01-28 08:15] VITALS: BP 144/67
--- NOTE | 2020-01-28 09:45 | NUR ---
Assumed care at 0700 this morning. Pt. awake alert, hyperverbal, delusional, paranoid. she took her morning medications without problems noted. She ate breakfast with many requests. She was cooperative with assessment. She stated she had a BM this morning. All findings wnl. she took her morning medications without problems.
[2020-01-28 16:51] VITALS: BP 139/63
[2020-01-28 20:00] VITALS: BP 132/68
--- NOTE | 2020-01-29 01:08 | NUR ---
PATIENT HAS BEEN IN ROOM MOST OF SHIFT TONIGHT. SHE DID COME OUT OF HER ROOM AROUND 1999 TO WALK THE HALLWAY AND USED HALLWAY PHONE TO MAKE A CALL. PATIENT HAS BEEN CALM. SHE HAD HS SNACK OF DECAF COFFEE AND ASTON CRACKERS WITH PEANUT BUTTER. PATIENT'S VSS. PATIENT TOOK HER MEDS WHOLE. SHE DID REFUSE HER LOVENOX SQ. PATIENT WAS TO DC YESTERDAY BUT UNABLE TO FIND A [facility] FOR HER TO GO TO. SHE WILL DC TODAY IF ONE IS FOUND. PATIENT GIVEN TYLENOL 650MG PO FOR C/O OF RIGHT SHOULDER PAIN 07/29. PATIENT IS A/0X4. SHE IS DELUSIONAL, IMPULSIVE AND PARANOID AT TIMES. SHE IS UP WITH WALKER BUT DOESN'T WANT TO USE IT WHEN UP. PATIENT APPEARS TO BE RESTING AT THIS TIME.
--- NOTE | 2020-01-29 06:33 | NUR ---
PATIENT UP IN ROOM. NO C/O PAIN. TOOK LEVOTHYROXINE 100MCG PO WITH WATER WITHOUT INCIDENT. BREAKFAST ORDER CALLED TO ZEV IN DIETARY. PATIENT SITTING UP IN CHAIR. CONTINUING TO MONITOR.
[2020-01-29 08:00] VITALS: BP 117/76
--- NOTE | 2020-01-29 13:43 | NUR ---
Assumed pt care at 7am.Pt up in chair watching tv.Pt snap out of nowhere screaming and yelling at this rn to get out of her room .Pt was verbally abusive towards this rn asking nurse to go back to her country. Pt refused assessment and meds.Dr Sanchez aware.She said rn should not go back to pt room. Pt ate 100% of meals served and has been asking for coffee at alltimes.Will contine to monitor.
--- NOTE | 2020-01-29 15:32 | NUR ---
CM FOLLOWED UP WITH PT THIS AM. CM SPOKE WITH CM ON 3W WHERE PT HAD COME FROM AND WITH DR. FALCON AND DR. MICHELLE. CARE TEAM INDICATED THAT PT IS MEDICALLY STABLE TO DISCHARGE THIS DAY. PT HAD IDNICATED SHE WZ INTERESTED IN GOING TO "[facility] [place]." THERE IS A [facility] CALLED [facility] . CM CALLED AND THEY INDICATED THAT PT NEEDED TO CALL THEIR CRISIS LINE. CM CALLED THE INTAKE LINE AND THEY INDICATED THEIR LONG-TERM IS FULL AND HAS BEEN FOR SOME TIME. THEY STATED THAT THE NEXT CLOSEST CHELTER WAS [facility] IN [facility]. CM NOTIFIED PT AND SHE INDICATED THAT SHE DIDN'T WANT TO GO TO [facility]. SHE STATED THAT SHE WAS GOING TO GO STAY WITH A COUPLE SHE KNOWS AT [address] [place], [id number]. SHE INDICATED THAT SHE WILL STAY IN A [place] ON THEIR PROPERTY AND PLANS TO WORK AT "[employer] IN [place]. CM ARRANGED [facility] [employer] [facility] TO TAKE PT TO THE ADDRESS ABOVE. SPECIMEN PREPARATION ASSISTANT BETWEEN [phone]. PT WILL NOT BE HOME BOUND THEREFORE NO HH ORDERED. PT'S CONFERENCE SERVICE COORDINATOR THROUGH HER OP MH PROVIDER WAS NOTIFED OR HER DISCHARGE DESTINATION AND PLAN WELL DHSS. NO OTHER CM INTERVENTION INDICATED. CASE CLOSED.
[2020-01-29] MEDS ORDERED: ASPIRIN EC81 M1 PO (15:40)
[2020-01-29] MEDS ORDERED: VITAMIN B-1100 M2 PO (15:40)
[2020-01-29] MEDS ORDERED: VITCB500GO PO (15:40)
[2020-01-29] MEDS ORDERED: ZINC SULFATE 2220 MG PO (15:40)
[2020-01-29] MEDS ORDERED: REXULTI1 MG PO (15:42)
[2020-01-29 15:58] VITALS: BP 139/63
--- NOTE | 2020-01-29 16:30 | NUR ---
Pt was transferred to 4W from 3W. Enhanced Isolation precautions discontinued. Pt to discharge today. ANNETTE discussed case with psychiatrist, Dr. Cosme. Dr. Cosme has completed Interrogatories to send to [facility]. ANNETTE notified Zain Holguin via phone and email that the documentation has been completed. Awaiting response from Zain as to where to send the paperwork. ANNETTE updated Crystal Ayoub and Ayana at [facility]. Notified of pt's discharge plan. [facility] [employer] is facilitating discharge. ANNETTE is available to assist as needed.
== END 2020-01-29 17:45 | disposition home or self-care (01) | DRG 178 ==
LOC: ER 12:51 → 3W 20:17 → EROBS 20:17 → 3W 22:34 → 4W 01-27 17:54
PROVIDERS: Internal Medicine; Nurse Practitioner Family; ADMIT Hospitalist; ATTEND Hospitalist
DX: U07.1 COVID-19 (principal); F23 Brief psychotic disorder; L03.115 Cellulitis of right lower limb; I10 Essential (primary) hypertension; E03.9 Hypothyroidism, unspecified; F17.210 Nicotine dependence, cigarettes, uncomplicated; E11.9 Type 2 diabetes mellitus without complications; E66.01 Morbid (severe) obesity due to excess calories; F25.9 Schizoaffective disorder, unspecified; R09.02 Hypoxemia; F31.9 Bipolar disorder, unspecified; Z79.899 Other long term (current) drug therapy; Z88.1 Allergy status to other antibiotic agents; Z88.2 Allergy status to sulfonamides; Z88.8 Allergy status to other drugs, medicaments and biological substances; Z68.38 Body mass index [BMI] 38.0-38.9, adult
CPT/HCPCS: 10040; 10080